=== PATIENT | female | born 1980 | race Caucasian/White ===

== ENCOUNTER 2021-05-04 21:40 | Emergency (ER) | payer BC ==
[2021-05-05] MEDS ORDERED: FENTANYL CITR 100 MCG/2 ML ONE (02:37)
[2021-05-05 02:40] LABS: Basophils % 0.9 % (0-1.3); Hematocrit 41.3 % (36.0-45.0); Lymphocytes % 30.7 % (15.3-44.8); MPV 9.8 fL (7.6-11.3); RBC Red Blood Cell Count 4.57 M/uL (3.86-4.86)
[2021-05-05] MEDS ORDERED: KETOROLAC 30 MG/ML INJ ONE (02:55)
[2021-05-05 02:58] LABS: ALT/SGPT 15 U/L (12-78); AST/SGOT 11 U/L (15-37); Albumin 4.1 g/dL (3.4-5.0); Alkaline Phosphatase 85 U/L (45-117); BUN Blood Urea Nitrogen 6 mg/dL (7-18); Bicarbonate 29 mmol/L (21-32); Bilirubin Direct 0.2 mg/dL (0-0.2); Bilirubin Total 0.6 mg/dL (0.2-1.0); Glucose Level 96 mg/dL (74-106); Lipase 135 U/L (73-393); Potassium 3.3 mmol/L (3.5-5.1); Protein, Total 7.8 g/dL (6.4-8.2); Sodium Level 138 mmol/L (136-145)
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
[2021-05-05 05:05] VITALS: BP 129/89; TEMP 98.3; O2SAT 98
--- NOTE | 2021-05-05 08:32 | RAD REPORT ---
EXAM DESCRIPTION: RAD - Hand Left 3 View - 05/05/2021 2:19 am CLINICAL HISTORY: PAIN COMPARISON: None. FINDINGS: No fracture, dislocation or periosteal reaction noted. No foreign body or other soft tissu e abnormality. IMPRESSION: Negative left hand examination.
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
== END 2021-05-05 04:52 | disposition home or self-care (01) ==
LOC: ER 21:40
DX: M25.552 Pain in left hip (principal); M25.551 Pain in right hip; M54.5 Low back pain; S63.682A Other sprain of left thumb, initial encounter; V49.49XA Driver injured in collision with other motor vehicles in traffic accident, initial encounter; F17.210 Nicotine dependence, cigarettes, uncomplicated
CPT/HCPCS: 85025; 80048; 36415; 80076; 83690; 70450; 72125; 71260; 74177; 73130; 96374; 99283; Q9967; J3010

== ENCOUNTER 2024-05-23 14:28 | Emergency (ER) | payer BC ==
[2024-05-23] MEDS ORDERED: ALBUTEROL 2.5 MG/3 ML NEB SOL ONE (15:03)
--- NOTE | 2024-05-23 15:50 | RAD REPORT ---
EXAM DESCRIPTION: RAD - Chest Pa And Lat (2 Views) - 05/23/2024 3:43 pm CLINICAL HISTORY: COUGH Chest pain. COMPARISON: No comparisons FINDINGS: The lungs are clear. The heart is normal in size. No displaced fractures. IMPRESSION: No acute or concerning finding suspected. The USPSTF recommends annual screening for lung cancer with low-dose CT (LDCT) in adults aged 50 to 8 0 years who have a 20 pack-year smoking history and currently smoke or have quit within the past 15 y ears.
--- NOTE | 2024-05-23 15:57 | ER ---
Nurse's Notes [facility] Name: Martha Nevarez Age: 44 yrs Sex: Female : 1980 Arrival Date: 05/23/2024 Time: 14:28 Bed 25 Private MD: Diagnosis: Unspecified asthma with (acute) exacerbation;Acute upper respiratory infection, unspecified Presentation: 05/23 14:34 Chief complaint: EMS states: diff breathing, hx of asthma, was wheezing all over, pt iw has been feeling bad since Tuesday, was seen at urgent care and given nausea medicine. Coronavirus screen: Client presents with at least one sign or symptom that may indicate coronavirus-19. Ebola Screen: No symptoms or risks identified at this time. Risk Assessment: Do you want to hurt yourself or someone else? Patient reports no desire to harm self or others. Onset of symptoms was May 23, 2024. Care prior to arrival: Medication(s) given: Albuterol Neb x 2, Atrovent Neb IV initiated. 18 GA, in the left antecubital area, Oxygen administered. via a nebulizer mask. 14:34 Method Of Arrival: EMS: [facility] iw 14:34 Acuity: DOROTHY 3 iw 16:10 Initial Sepsis Screen: Does the patient meet any 2 criteria? Systolic BP < 90 mmHg. me1 Does the patient have a suspected source of infection? No. Patient's initial sepsis screen is negative. 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 - Infectious Disease History:: Denies. - Social history:: Smoking status: Patient reports the use of cigarette tobacco products, smokes one-half pack cigarettes per day. Screenin:48 [facility] ED Fall Risk Assessment (Adult) History of falling in the last 3 months, me1 including since admission No falls in past 3 months (0 pts) Confusion or Disorientation No (0 pts) Intoxicated or Sedated No (0 pts) Impaired Gait No (0 pts) Mobility Assist Device Used No (0 pt) Altered Elimination No (0 pt) Score/Fall Risk Level 0 - 2 = Low Risk Maintained a safe environment, Provided non-skid footwear, Hourly rounding (assess needs \T\ fall precautionary measures) done. Abuse screen: Denies threats or abuse. Nutritional screening: No deficits noted. Tuberculosis screening: No symptoms or risk factors identified. Assessment: 14:48 General: Appears comfortable, well groomed, well developed, well nourished, Behavior is me1 calm, cooperative, appropriate for age, Reports diff breathing, hx of asthma, was wheezing all over, pt has been feeling bad since Tuesday, was seen at urgent care and given nausea medicine. Pain: Denies pain. Neuro: Level of Consciousness is awake, alert, obeys commands, Oriented to person, place, time, situation, Appropriate for age. Cardiovascular: Patient's skin is warm and dry. Rhythm is regular. Respiratory: Airway is patent Trachea midline Respiratory effort is even, labored, Respiratory pattern is regular, symmetrical, Breath sounds with wheezes bilaterally. Respiratory: Reports shortness of breath at rest on exertion cough that is dry. GI: No signs and/or symptoms were reported involving the gastrointestinal system. : No signs and/or symptoms were reported regarding the genitourinary system. EENT: No signs and/or symptoms were reported regarding the EENT system. Derm: Skin is intact, is healthy with good turgor, Skin is pink, warm \T\ dry. Musculoskeletal: No signs and/or symptoms reported regarding the musculoskeletal system. Vital Signs: 14:24 BP 123 / 80; Pulse 105; Resp 19; Temp 98.2; Pulse Ox 100% on R/A; me1 15:15 BP 105 / 65; Pulse 96; Resp 18; Pulse Ox 100% on R/A; me1 15:15 BP 106 / 67; Pulse 93; Resp 17; Pulse Ox 100% on R/A; me1 ED Course: 14:24 Arm band placed on Patient placed in an exam room. me1 14:34 Patient arrived in ED. iw 14:34 Oren Erazo DO is Attending Physician. ms3 14:36 Triage completed. iw 14:45 Martha Grant, RN is Primary Nurse. me1 14:47 Maintain EMS IV. Dressing intact. Good blood return noted. Site clean \T\ dry. Gauge \T\ me 1 site: 18g LAC. Flushed with 10 mL NS. 14:48 No provider procedures requiring assistance completed. me1 14:48 Patient has correct armband on for positive identification. Bed in low position. Call me1 light in reach. Side rails up X2. Provided Education on: POC. Verbalized understanding. . Client placed on continuous cardiac and pulse oximetry monitoring. NIBP monitoring applied. Pulse ox on. NIBP on. 14:48 Warm blanket given. me1 15:45 Chest Pa And Lat (2 Views) XRAY In Process Unspecified. EDMS 15:56 Jona Womack MD is Referral Physician. ms3 16:09 IV discontinued, intact, bleeding controlled, No redness/swelling at site. Pressure me1 dressing applied. Administered Medications: 15:05 Drug: Albuterol Inhalation 2.5 mg Inhalation every 20 minutes x3 Route: Inhalation; me1 16:07 Follow up: Response: No adverse reaction; Wheezing diminished me1 Medication: 14:48 VIS not applicable for this client. me1 Outcome: 15:56 Discharge ordered by MD. ms3 16:09 Discharged to home ambulatory, with friend, me1 16:09 Condition: stable 16:09 Discharge instructions given to patient, Instructed on discharge instructions, follow up and referral plans. medication usage, Demonstrated understanding of instructions, follow-up care, medications, Prescriptions given X 2, 16:11 Patient left the ED. me1 Signatures: Dispatcher [employer] EDSabine Wells RN RN iw Oren Erazo, DO DO ms3 Martha Grant RN RN me1 Corrections: (The following items were deleted from the chart) 14:46 14:34 Chief complaint: EMS states: diff breathing, hx of asthma, was wheezing all over, me1 pt has been feeling bad since Tuesday, was seen at urgent care and given nausea medicine iw 14:48 14:34 Chief complaint: EMS states: diff breathing, hx of asthma, was wheezing all over, me1 pt has been feeling bad since Tuesday, was seen at urgent care and given nausea medicine me1
--- NOTE | 2024-05-23 15:57 | EDPHYS ---
Physician Documentation [facility] Name: Martha Nevarez Age: 44 yrs Sex: Female : 1980 Arrival Date: 05/23/2024 Time: 14:28 Bed 25 Private MD: ED Physician Oren Erazo HPI: 05/23 19:38 This 44 yrs old Female presents to ER via EMS with complaints of Breathing Difficulty. ms3 19:38 44-year-old female presents to the emergency department via [facility] for asthma ms3 exacerbation. EMS states they gave patient DuoNeb, Solu-Medrol, 250 mL IV fluids and 4 mg of Zofran. Patient denies pain. Patient states she was seen in urgent care yesterday and prescribed cough medications.. 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 - Infectious Disease History:: Denies. - Social history:: Smoking status: Patient reports the use of cigarette tobacco products, smokes one-half pack cigarettes per day. ROS: 19:38 Constitutional: Negative for fever, and chills. Cardiovascular: Negative for chest ms3 pain, and palpitations. 19:38 Abdomen/GI: Negative for abdominal pain, nausea, vomiting, diarrhea, and constipation, MS/Extremity: Negative for injury and deformity, Skin: Negative for injury, rash, and discoloration, 19:38 Respiratory: Positive for shortness of breath, Exam: 19:38 Constitutional: This is a well developed, well nourished patient who is awake, alert, ms3 and in no acute distress. Chest/axilla: Normal chest wall appearance and motion. Nontender with no deformity. Cardiovascular: Regular rate and rhythm with a normal S1 and S2. No gallops, murmurs, or rubs. Normal PMI, no JVD. No pulse deficits. 19:38 Skin: Warm, dry with normal turgor. Normal color with no rashes, no lesions, and no evidence of cellulitis. 19:38 Respiratory: the patient does not display signs of respiratory distress, Respirations: normal, Breath sounds: wheezing: expiratory Vital Signs: 14:24 BP 123 / 80; Pulse 105; Resp 19; Temp 98.2; Pulse Ox 100% on R/A; me1 15:15 BP 105 / 65; Pulse 96; Resp 18; Pulse Ox 100% on R/A; me1 15:15 BP 106 / 67; Pulse 93; Resp 17; Pulse Ox 100% on R/A; me1 MDM: 14:34 Patient medically screened. ms3 19:38 Differential diagnosis: asthma, pneumonia, reactive airway disease. Antibiotic ms3 administration: Not indicated. Immunization status:. Data reviewed: vital signs, nurses notes, radiologic studies, and as a result, I will discharge patient. I considered the following discharge prescriptions or medication management in the emergency department Medications were administered in the Emergency Department. See MAR. Independent interpretation of the following test(s) in the Emergency Department X-Ray: My interpretation is Chest x-ray image reviewed by me does not reveal pneumonia. Counseling: I had a detailed discussion with the patient and/or guardian regarding the historical points, exam findings, and any diagnostic results supporting the discharge/admit diagnosis, radiology results, the need for outpatient follow up, to return to the emergency department if symptoms worsen or persist or if there are any questions or concerns that arise at home. Special discussion: I discussed with the patient/guardian in detail that at this point there is no indication for admission to the hospital. It is understood, however, that if the symptoms persist or worsen the patient needs to return immediately for re-evaluation. ED course: Discussed chest x-ray findings with patient. Patient given prescription for albuterol and prednisone. Patient understands agrees with plan to follow-up with pulmonology in 2 to 3 days. All questions were answered. Return precautions discussed include worsening symptoms, or any other concerns. On reevaluation patient's wheezing resolved, in no apparent distress, alert and orient x 4, ambulatory in the emergency department, speaking full sentences. 05/23 14:34 Order name: Chest Pa And Lat (2 Views) XRAY ms3 Administered Medications: 15:05 Drug: Albuterol Inhalation 2.5 mg Inhalation every 20 minutes x3 Route: Inhalation; me1 16:07 Follow up: Response: No adverse reaction; Wheezing diminished me1 Disposition Summary: 05/23/24 15:56 Discharge Ordered Notes: Location: Home ms3 Condition: Stable ms3 Diagnosis - Unspecified asthma with (acute) exacerbation ms3 - Acute upper respiratory infection, unspecified ms3 Followup: ms3 - With: Jona Womack MD - When: 2 - 3 days - Reason: Recheck today's complaints Discharge Instructions: - Discharge Summary Sheet ms3 - Upper Respiratory Infection, Adult ms3 Forms: - Medication Reconciliation Form ms3 - Antibiotic Education ms3 - Prescription Opioid Use ms3 - Patient Portal Instructions ms3 - Leadership Thank You Letter ms3 Prescriptions: - albuterol sulfate 90 mcg/actuation Inhalation HFA Aerosol Inhaler - inhale 2 puff INHALATION route every 2 to 4 hours as needed for bronchospasm; ms3 administer via ventilator; 1 unit; Refills: 0, Product Selection Permitted - Prednisone 20 mg Oral Tablet - take 3 tablets ORAL route once daily for 5 days; 15 tablet; Refills: 0, Product ms3 Selection Permitted Signatures: Dispatcher [employer] Sabine Billings RN RN iw Sims, Marcus, DO DO ms3 Martha Grant RN RN me1
[2024-05-23 16:15] VITALS: BP 106/67; O2SAT 100
== END 2024-05-23 16:11 | disposition home or self-care (01) ==
LOC: ER 14:28
DX: J45.901 Unspecified asthma with (acute) exacerbation (principal); J06.9 Acute upper respiratory infection, unspecified; F17.210 Nicotine dependence, cigarettes, uncomplicated
CPT/HCPCS: 71046; J7613